=== PATIENT | female | born 1975 | race Caucasian/White ===

== ENCOUNTER 2020-04-05 09:41 | Outpatient (CLI) | payer OTHER, SELFPAY ==
[2020-04-05 10:15] LABS: Basophils Absolute Auto 0.1 K/mm3 (0.0-0.1); Eosinophils Absolute Auto 0.4 K/mm3 (0-0.3); Eosinophils Percent Auto 8.2 % (0-4.4); Hematocrit 43.2 % (37.0-47.0); Hemoglobin 14.6 g/dL (12.0-15.0); Immature Granulocyte Absolute 0.03 K/mm3 (0.00-0.031); Immature Granulocyte Percent A 0.6 % (0-0.5); Lymphocytes Absolute Auto 1.89 K/mm3 (0.9-3.2); Lymphocytes Percent Auto 37.6 % (18.3-44.2); Mean Corpuscular HGB Conc 33.8 g/dl (32-36); Mean Corpuscular Hemoglobin 32.9 pg (26-34); Mean Corpuscular Volume 97.3 fl (80-100); Mean Platelet Volume 10.9 fl (7.4-10.4); Monocytes Absolute Auto 0.5 K/mm3 (0.1-0.6); Monocytes Percent Auto 10.6 % (2.6-8.5); Neutrophils Absolute Auto 2.1 K/mm3 (1.3-6.7); Platelet Count Result 316 k/mm3 (150-375); Red Blood Count 4.44 M/mm3 (4.2-5.4); Red Cell Distribution Width 11.8 % (11.5-14.5)
[2020-04-05 10:28] LABS: Alanine Aminotransferase 9 U/L (4-35); Albumin Level 4.4 g/dL (3.5-5.1); Alkaline Phosphatase 57 U/L (38-126); Anion Gap 5 mmol/L (8-16); Aspartate Amino Transferase 21 U/L (14-36); Bilirubin,Total 0.7 mg/dL (0.2-1.3); Blood Urea Nitrogen 13 mg/dL (7-17); Carbon Dioxide 29 mmol/L (22-30); Chloride 102 mmol/L (98-107); Cholesterol 178 mg/dL (0-200); Estimated Glomerular Filt Rate > 60; Glucose 93 mg/dL (65-105); HDL Direct 46 mg/dL; Magnesium 2.2 mg/dL (1.6-2.3); Potassium 3.9 mmol/L (3.4-5.0); Sodium 136 mmol/L (137-145); Triglycerides 60 mg/dL (<150)
[2020-04-05 10:39] LABS: LDL Cholesterol Direct 113 mg/dL
[2020-04-05 10:59] LABS: Thyroid Stimulating Hormone 0.674 uIU/mL (0.465-4.680)
[2020-04-05 11:02] LABS: Erythrocyte Sedimentation Rate 15 mm/hr (0-20)
[2020-04-05 11:34] LABS: Folic Acid 10.9 ng/mL (2.76->20)
[2020-04-10 20:52] LABS: Anti Nuclear Antibody Pattern Nuclear, Speckled
== END 2020-04-05 09:42 | disposition home or self-care (01) ==
LOC: ANHLAB 09:43
PROVIDERS: PCP Internal Medicine; Visit Provider Internal Medicine
DX: Z00.00 Encounter for general adult medical examination without abnormal findings (principal); R51 Headache; R53.83 Other fatigue; I10 Essential (primary) hypertension
CPT/HCPCS: 36415; 80053; 80061; 82607; 82746; 83735; 84443; 85025; 85652; 86038; 86039

== ENCOUNTER → 2020-09-10 09:14 | Outpatient (CLI) | payer OTHER, SELFPAY ==
--- NOTE | ~2020-09-10 | MR_ITS ---
EXAMINATION: MR brain IAC wo/w con EXAM DATE: 09/10/2020 10:42 INDICATION: R42 - Dizziness and giddiness dizziness and giddiness. Bilateral facial numbness intermit tent. TECHNIQUE: Multi-sequential, multiplanar MR images of the brain, brainstem, internal auditory canals were obtained without contrast. Whole brain sagittal T1, axial diffusion, gradient echo (T2*), T1, T 2, FLAIR sequences obtained. High resolution coronal 3-D FIESTA, coronal T1 FSE, axial T1 FSPGR of t he internal auditory canals. Patient was then injected with 10 cc Multihance contrast intravenously. Postcontrast axial and coronal T1 weighted whole brain, axial and coronal high resolution T1 IAC seq uences obtained. Comparison is made to prior examination from 09/05/2011. FINDINGS: No evidence of mastoid or middle ear opacification. The 7th/8th cranial nerve complexes a re symmetric, normal in course and caliber. No cerebellopontine angle masses. Posterior fossa unrem arkable. There are no areas of restricted diffusion to suggest acute infarction. There is no acute hemorrhage seen on the T2*, a hemosiderin sensitive sequence. No intraparenchymal brain mass. The ventricles a re normal in size. There are no extra-axial collections. Flow voids are seen in the cerebral arteri es on the T2-weighted sequences consistent with their expected patency. The orbits are unremarkable. Soft tissue is unremarkable. Small region of left frontal lobe linear enhancement unchanged, like ly capillary telangiectasia or development of venous anomaly. This is not a clinically significant fi nding. IMPRESSION: 1. 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 2. Otherwise normal brain/IAC examination. Reviewed, dictated and finalized at location B. [employer]
[2020-09-10 10:04] LABS: Estimated Glomerular Filt Rate > 60
== END ==
PROVIDERS: PCP Internal Medicine; Visit Provider Internal Medicine
DX: R42 Dizziness and giddiness (principal)
CPT/HCPCS: 70553; A9577